=== PATIENT | female | born 1960 | race African-American/Black ===

== ENCOUNTER 2017-08-03 12:03 | Inpatient (IN) | payer BC ==
[2017-08-03] MEDS ORDERED: diphenhydrAMINE 50 MG/ML VIAL ONE (12:16)
[2017-08-03] MEDS ORDERED: Tenecteplase 50 MG - STEMI KIT ONE (12:18)
[2017-08-03 12:38] LABS: #Lymphocytes 3.5 thou/uL (1.20-3.40); #Monocytes 1.1 thou/uL (0.11-0.59); #Neutrophils 10.4 thou/uL (1.40-6.50); %Basophils 0.3 % (0.0-1.0); %Eosinophils 0.2 % (0.0-10.0); %Lymphocytes 23.3 % (21.0-51.0); %Monocytes 7.1 % (0.0-10.0); Hemoglobin 16.5 g/dL (12.0-16.0); Mean Corpuscular HGB CONC 34.2 g/dL (32.0-36.0); Mean Corpuscular Volume 84.7 fl (81.0-99.0); Mean Platelet Volume 7.4 fL (7.4-10.4); Platelet Count 306 thou/uL (130-400); RBC Distribution Width 13.8 % (11.5-14.5); Red Blood Cell (RBC) Count 5.67 mill/uL (4.20-5.40); White Blood Cell (WBC) Count 15.1 thou/uL (4.8-10.8)
[2017-08-03 12:53] LABS: ALT (SGPT) 32 U/L (8-55); AST (SGOT) 96 U/L (5-34); Albumin 4.6 g/dL (3.5-5.0); Alkaline Phosphatase 152 U/L (40-150); Anion Gap 17 mmol/L (10-20); BUN (Urea Nitrogen) 13 mg/dL (9.8-20.1); Bilirubin, Total 0.6 mg/dL (0.2-1.2); CK (CPK) 1118 U/L (29-168); Calc. Creatinine Clearance 0 mL/min (70-130); Calcium 10.3 mg/dL (7.8-10.44); Carbon Dioxide 24 mmol/L (22-29); Chloride 100 mmol/L (98-107); Estimated GFR-MDRD 64; Globulin 4.6 g/dL (2.4-3.5); Glucose 133 mg/dL (70-105); Potassium 3.7 mmol/L (3.5-5.1); Protein, Total 9.2 g/dL (6.0-8.3); Sodium 137 mmol/L (136-145)
[2017-08-03 13:06] LABS: CKMB 116.6 ng/mL (0-6.6); Troponin I 7.214 ng/mL (< 0.028)
[2017-08-03 13:21] LABS: Magnesium 1.9 mg/dL (1.6-2.6)
[2017-08-03 13:27] LABS: INR-International Normal Ratio 1.1; PTT 34.8 SEC (22.9-36.1); Prothrombin Time 13.9 SEC (12.0-14.7)
[2017-08-03] MEDS ORDERED: Heparin 10,000 UNITS/ 10 ML VIAL SLOW IVP SCH (14:00)
[2017-08-03] MEDS ORDERED: Communication Order-Pharmacy FS SCH (14:00)
[2017-08-03] MEDS ORDERED: Clopidogrel Bisulfate 300 MG TAB PO SCH (14:00)
[2017-08-03] MEDS ORDERED: Heparin 25,000 units/D5W 500 ML IVPB SCH (14:00)
[2017-08-03 14:25] LABS: Cardiac Risk 4.2 (Less than 4.5)
--- NOTE | 2017-08-03 14:31 | RAD ---
PORTABLE CHEST: Date: 08-03-17 Provided Clinical History: Chest pain. FINDINGS: Comparison 12-05-08. Evaluation is limited by patient body habitus. The cardiac silhouette appears enlarged. No focal cons olidation, pleural fluid or pneumothorax apparent. IMPRESSION: Cardiomegaly without evidence for an acute cardiopulmonary process. POS: [facility]
[2017-08-03 14:38] LABS: Hemoglobin 14.9 g/dL (12.0-16.0); Platelet Count 299 thou/uL (130-400)
[2017-08-03 14:49] LABS: PTT 125.5 SEC (22.9-36.1)
[2017-08-03] MEDS ORDERED: Ondansetron HCl/PF 4 MG/2 ML Vial IVP PRN (15:21)
[2017-08-03] MEDS ORDERED: Acetaminophen 325 MG TAB PO PRN (15:21)
[2017-08-03] MEDS ORDERED: Nitroglycerin 0.4 MG TAB (25 Tab Bottle) SL PRN (15:21)
[2017-08-03] MEDS ORDERED: Nitroglycerin 50 MG/250 ML BOT 250 ML IVPB SCH (15:30)
[2017-08-03] MEDS: Sodium Chloride 0.9% 1,000 ML IV SCH (16:36)
[2017-08-03 16:42] LABS: Troponin I 15.643 ng/mL (< 0.028)
[2017-08-03 16:51] VITALS: BMI 38.7
[2017-08-03] MEDS: Morphine 4 MG/ML VIAL SLOW IVP PRN ×2 (17:47→20:59)
[2017-08-03 18:51] LABS: Troponin I 15.958 ng/mL (< 0.028)
[2017-08-03] MEDS ORDERED: Famotidine/PF 20 mg/2ml Vial SLOW IVP SCH (21:00)
[2017-08-03] MEDS ORDERED: Atorvastatin Calcium 20 MG TAB PO SCH (21:00)
[2017-08-03] MEDS: Atorvastatin Calcium 40 MG TAB PO SCH (21:04)
[2017-08-03] MEDS: Metoprolol Tartrate 100 MG TAB PO SCH (21:04)
[2017-08-04 05:24] LABS: Band 2 % (5-11); Hemoglobin 13.6 g/dL (12.0-16.0); Lymphocytes 30 % (21-51); MDiff Complete? YES; Mean Corpuscular HGB CONC 34.1 g/dL (32.0-36.0); Mean Corpuscular Hemoglobin 29.6 pg (27.0-31.0); Mean Corpuscular Volume 86.8 fl (81.0-99.0); Mean Platelet Volume 7.5 fL (7.4-10.4); Monocytes 8 % (0-10); Neutrophil 59 % (42-75); Platelet Count 274 thou/uL (130-400); RBC Distribution Width 13.8 % (11.5-14.5); Reactive Lymphocytes 1 % (0-10); Red Blood Cell (RBC) Count 4.61 mill/uL (4.20-5.40); White Blood Cell (WBC) Count 15.5 thou/uL (4.8-10.8)
[2017-08-04] MEDS: Sodium Chloride 0.9% 1,000 ML IV SCH ×4 (05:51→18:32)
[2017-08-04 06:11] LABS: ALT (SGPT) 23 U/L (8-55); AST (SGOT) 57 U/L (5-34); Albumin 3.5 g/dL (3.5-5.0); Alkaline Phosphatase 106 U/L (40-150); Anion Gap 12 mmol/L (10-20); BUN (Urea Nitrogen) 14 mg/dL (9.8-20.1); Bilirubin, Total 0.5 mg/dL (0.2-1.2); Calc. Creatinine Clearance 83 mL/min (70-130); Calcium 8.2 mg/dL (7.8-10.44); Carbon Dioxide 22 mmol/L (22-29); Cardiac Risk 3.6 (Less than 4.5); Chloride 106 mmol/L (98-107); Cholesterol 171 mg/dl (< 200 Desired); Estimated GFR-MDRD 58; Globulin 3.3 g/dL (2.4-3.5); Glucose 144 mg/dL (70-105); HDL Cholesterol 48 mg/dL (>60 Neg Risk); LDL Cholesterol, Calculated 100 mg/dL; Potassium 3.5 mmol/L (3.5-5.1); Protein, Total 6.8 g/dL (6.0-8.3); Sodium 136 mmol/L (136-145); Triglycerides 114 mg/dL (Less than 150)
[2017-08-04] MEDS ORDERED: Famotidine 40 MG/4 ML VIAL SLOW IVP SCH (09:00)
[2017-08-04] MEDS: Clopidogrel Bisulfate 75 MG TAB PO SCH (09:45)
[2017-08-04] MEDS: Famotidine 20 MG TAB PO SCH ×2 (09:45→20:13)
[2017-08-04] MEDS: Metoprolol Tartrate 100 MG TAB PO SCH ×2 (09:45→20:13)
[2017-08-04 10:17] LABS: CKMB 35.6 ng/mL (0-6.6); Troponin I 9.518 ng/mL (< 0.028)
[2017-08-04] MEDS ORDERED: Heparin 10,000 UNITS/1 ML VIAL ONE (10:50)
[2017-08-04] MEDS ORDERED: Lidocaine 1% (PF) 30 ML VIAL ONE (11:16)
[2017-08-04] MEDS ORDERED: Fentanyl 100 MCG/2 ML VIAL ONE (11:18)
[2017-08-04] MEDS ORDERED: Midazolam HCl 2 mg/2 ml Vial ONE (11:18)
[2017-08-04] MEDS ORDERED: Bivalirudin 250 MG VIAL ONE (11:37)
[2017-08-04] MEDS ORDERED: Clopidogrel Bisulfate 300 MG TAB ONE (11:46)
[2017-08-04] MEDS ORDERED: Nitroglycerin 100MG/250ML BOT 250 ML ONE (11:54)
[2017-08-04] MEDS ORDERED: Lisinopril 10 MG TAB PO SCH (13:00)
--- NOTE | 2017-08-04 13:32 | PDOC.PN ---
- Subjective Encounter Start Date: 08/04/17 Encounter Start Time: 11:00 Subjective: is npo for cath -: chest pain has eased up mostly -: no palp or sob - Objective MAR Reviewed: Yes Vital Signs & Weight: Vital Signs (12 hours) Temp Pulse Resp Pulse Ox 08/04/17 08:00 98.5 F 80 16 100 08/04/17 04:00 97.6 F Most Recent Monitor Data Heart Rate from ECG 70 NIBP 126/73 NIBP BP-Mean 96 Respiration from ECG 12 SpO2 100 I&O: 08/03/17 08/04/17 08/05/17 06:59 06:59 06:59 Intake Total 1639 Output Total 1 400 Balance 1638 -400 Result Diagrams: 08/04/17 04:26 08/04/17 04:26 Phys Exam - Physical Examination HEENT: PERRLA, moist MMs Neck: no JVD, supple Respiratory: no wheezing, no rales Cardiovascular: RRR, no significant murmur Gastrointestinal: soft, non-tender, positive bowel sounds Musculoskeletal: no edema, pulses present Neurological: non-focal, moves all 4 limbs Psychiatric: normal affect, A&O x 3 Dx/Plan (1) STEMI (ST elevation myocardial infarction) Status: Acute Qualifiers: Involved coronary artery: LAD coronary artery Qualified Code(s): I21.02 - ST elevation (STEMI) myocardial infarction involving left anterior descending coronary artery Comment: s/p stent to lad and rca (2) HTN (hypertension) Code(s): I10 - ESSENTIAL (PRIMARY) HYPERTENSION Status: Chronic Qualifiers: Hypertension type: essential hypertension Qualified Code(s): I10 - Essential (primary) hypertension (3) Dyslipidemia Code(s): E78.5 - HYPERLIPIDEMIA, UNSPECIFIED Status: Chronic (4) Obesity (BMI 30-39.9) Code(s): E66.9 - OBESITY, UNSPECIFIED Status: Chronic - Plan is on plavix (allergic to asp) and lipitor -: lopressor, lisinopril -: iv hydration -: to amb as tolerated post cath protocol -: early dm with HbA1c of 6 * . Review of Systems - Medications/Allergies Allergies/Adverse Reactions: Allergies Allergy/AdvReac Type Severity Reaction Status Date / Time aspirin Allergy Verified 05/02/16 15:17 Penicillins Allergy Verified 05/02/16 15:17 Medications: Current Medications Acetaminophen (Tylenol) 650 mg PO Q4H PRN PRN Reason: Headache/Fever or Pain Atorvastatin Calcium (Lipitor) 40 mg PO HS [facility] Last Admin: 08/03/17 21:04 Dose: 40 mg Clopidogrel Bisulfate (Plavix) 75 mg PO DAILY [facility] Last Admin: 08/04/17 09:45 Dose: 75 mg Famotidine (Pepcid) 20 mg PO Q12HR [facility] Last Admin: 08/04/17 09:45 Dose: 20 mg Nitroglycerin/Dextrose (Nitroglycerin 50 Mg/250 Ml Bot) 250 mls @ 0 mls/hr IVPB INF YADI; Titrate PRN Reason: Protocol Sodium Chloride (Normal Saline 0.9%) 1,000 mls @ 125 mls/hr IV .Q8H [facility] Stop: 08/04/17 20:00 Lisinopril (Zestril) 10 mg PO BID [facility] Lisinopril (Zestril) 10 mg PO NOW [facility] Stop: 08/04/17 15:00 Metoprolol Tartrate (Lopressor) 100 mg PO BID [facility] Last Admin: 08/04/17 09:45 Dose: 100 mg Morphine Sulfate (Morphine) 2 mg SLOW IVP Q5MIN PRN PRN Reason: Chest Pain Last Admin: 08/03/17 20:59 Dose: 2 mg Nitroglycerin (Nitrostat) 0.4 mg SL Q5MIN PRN PRN Reason: Chest Pain Ondansetron HCl (Zofran) 4 mg IVP Q6H PRN PRN Reason: Nausea/Vomiting Last Admin: 08/03/17 21:02 Dose: 4 mg
[2017-08-04] MEDS ORDERED: Iopamidol 370 76% 100 ML VIAL ONE (14:01)
[2017-08-04] MEDS ORDERED: Iopamidol 370 76% 50 ML VIAL FS ONE (14:01)
--- NOTE | 2017-08-04 15:03 | CCL ---
CARDIAC CATHETERIZATION REPORT: Date: 08/04/17 PROCEDURE: Left heart catheterization, selective arteriography, and left ventriculography. Intracoronary nitroglycerin. Stent placement in the LAD and first diagonal. INDICATION: Anterolateral STEMI. DESCRIPTION OF PROCEDURE: The patient was brought to the cardiac stucco laborer after having received TNKase the day prior. 1% lidocaine was infiltrated. Fentanyl 25 mg and Versed 1 mg were given intravenously. A 6 Surinamese sheath was placed into the right femoral artery. A 6 Surinamese Kat left-4 followed by a 6 Surinamese Kat right-4 was used for coronary arteriography. The patient was given an additional 300 mg of Plavix PO. Angiomax bolus and drip were started. A 6 Surinamese left-4 guide catheter was inserted. A floppy Choice wire was advanced into the distal LAD. The mid LAD lesion, once it was wired, which was somewhat difficult, was predilated with Emerge 2.5 x 15 mm balloon. This was then removed and Synergy 2.5 x 16 mm stent was then positioned and deployed. Distal to this, there appeared to be either dissection or spasm and nitroglycerin 200 mcg was given with dramatic improvement. Attention was then turned to the mid LAD just distal to the diagonal takeoff and it was felt this was also a fairly significant lesion. An additional floppy Choice wire was advanced into the first diagonal. Synergy 3.0 x 12 mm stent was then positioned in the first diagonal and deployed with proximal part of the stent just at the ostium of the first diagonal. The balloon was then removed and Synergy 3.0 x 20 mm stent was then positioned across the takeoff of the first diagonal into the LAD lesion. This was then deployed. The diagonal wire was then removed. With the more distal stent, it was felt there was still a narrowing in the mid portion of the stent, and an Emerge 3.0 x 8 mm balloon was then positioned and inflated. The wire was then removed. Final contrast injections were performed, which showed excellent results. A 6 Surinamese angulated pigtail was then inserted and pressures were obtained. Left ventriculogram was performed using 30 mL of contrast at 12 mL per second in a FLOWER 30 degree projection. Cine was inoperable and this was performed on stored fluoro. The sheath was then sutured in place and patient was transferred to the ICU. RESULTS: PRESSURES: Aorta 146/92, mean of 116 Left Ventricle 150/28 CORONARY ARTERIOGRAPHY: 1. The left main was normal. 2. The LAD had a 70% mid stenosis, as well as a 90% mid stenosis. There was a 60% stenosis in the first diagonal. 3. The circumflex had a 30% first obtuse marginal stenosis. 4. The right coronary artery had a 20% proximal stenosis and a 60% distal stenosis. INTERVENTION RESULTS: The initial mid LAD lesion was 90%; final lesion was 0%. The other mid LAD lesion was reduced from 70% to 0%. The diagonal lesion was reduced from 60% to 0%. LEFT VENTRICULOGRAM: There was moderate apical hypokinesis with ejection fraction of 55-60%. IMPRESSION: 1. Two vessel coronary artery disease (LAD and RCA). 2. Successful stent placement in the proximal to mid LAD, first diagonal, and mid LAD. 3. Mild left ventricular dysfunction. MTDD
[2017-08-04] MEDS: Lisinopril 10 MG TAB PO SCH (20:12)
[2017-08-04] MEDS: Atorvastatin Calcium 40 MG TAB PO SCH (20:13)
--- NOTE | 2017-08-05 01:50 | HP ---
REASON FOR ADMISSION: Anterolateral wall STEMI, septal OR. HISTORY OF PRESENTING ILLNESS: The patient gives history of having retrosternal chest pain from 3 p.m. onwards yesterday. This happened while she was at home. The patient initially thought this was due to gas and tried taking up to 3 to 4 Tums. There was no relief. Initial pain was 8/10 in intensity. The pain started out behind her right breast, but then this pain stationed around her retrosternal and epigastric area for the most part. As the pain continued all through the night and early this morning, the patient finally made it to the emergency room here. Currently, the pain is 3/10 in intensity. She was found to have had septal and anterolateral wall OR. She was given tenecteplase 50 mg IV x1. She was also given 5 mg of lopressor IV push and was placed on heparin infusion as patient has ongoing chest pain. Currently, she rates her pain as 3 to 4/10. It is in the same location. No complaints of shortness of breath. No prior cardiac workup. No prior history of OR. No complaints of fever, cough or expectoration. 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 CURRENT MEDICATIONS: Atenolol 100 mg p.o. twice daily. ALLERGIES: Allergic to ASPIRIN, which causes her to have a rash and PENICILLIN does the same thing. PERSONAL HISTORY: She does not abuse alcohol or drugs. No history of smoking. Works at [employer]. FAMILY HISTORY: Mother of OR in her 30s. Father is still living and healthy as far as she knows. CODE STATUS: FULL. Power of title attorney is her daughter. REVIEW OF SYSTEMS: The following complete review of systems was negative, unless otherwise mentioned in the HPI or below: Constitutional: Weight loss or gain, ability to conduct usual activities. Skin: Rash, itching. Eyes: Double vision, pain. ENT/Mouth: Nose bleeding, neck stiffness, pain, tenderness. Cardiovascular: Palpitations, dyspnea on exertion, orthopnea. Respiratory: Shortness of breath, wheezing, cough, hemoptysis, fever or night sweats. Gastrointestinal: Poor appetite, abdominal pain, heartburn, nausea, vomiting, constipation, or diarrhea. Genitourinary: Urgency, frequency, dysuria, nocturia. Musculoskeletal: Pain, swelling. Neurologic/Psychiatric: Anxiety, depression. Allergy/Immunologic: Skin rash, bleeding tendency. PHYSICAL EXAMINATION: GENERAL: The patient is a 57-year-old female, who is currently in moderate chest pain. VITAL SIGNS: Blood pressure 160/84, pulse 84 per minute, respiratory rate 18 per minute, temperature 99 degrees, saturating 100% on 2 L nasal cannula. NECK: Supple. No elevated JVD. HEENT: Eyes: Extraocular muscles intact. Pupils are reacting to light. Oral cavity: Mucous membranes are dry. No exudates or congestion. CARDIOVASCULAR: S1, S2 heard. Regular rhythm. RESPIRATORY: Air entry 2+ bilateral. No rales or rhonchi. ABDOMEN: Soft. Bowel sounds heard. No tenderness, rigidity or guarding. EXTREMITIES: No peripheral edema or calf tenderness. VASCULAR: Peripheral pulses 1+ bilateral. No ischemic ulcerations or gangrene. CENTRAL NERVOUS SYSTEM: No gross focal deficits seen. The patient is alert and oriented well. PSYCHIATRIC: The patient is a bit anxious, otherwise no hallucinations or delusions. LABORATORY DATA: White count of 15, hemoglobin and hematocrit 16 and 48, platelet count 306,000 with 69% neutrophils, MCV is 84. PT, INR, and PTT are within normal limits on arrival. Electrolytes are stable. BUN 13, creatinine 1.0, serum glucose is 133, HbA1c 6.0. AST 96, ALT 32, alkaline phosphatase 152 , CK level 1118, CK-MB 116, troponin I 7.21, BNP 643. Albumin is 4.6, triglycerides 114, total cholesterol 242, LDL 162, HDL 57, and lipase is 19. IMAGING: Chest x-ray done shows cardiomegaly without any acute infiltrate. EKG done shows ST-elevation in V1, V2, V3, V4 leads, has reciprocal changes. Rhythm is in normal sinus and the rate is around 85 beats per minute. CLINICAL IMPRESSION AND PLAN: The patient will be admitted to ICU for ST- elevation myocardial infarction of anterolateral and septal wall. She was given 50 mg IV x1 dose of tenecteplase and as the pain is ongoing, she has been continued on heparin drip. Dr. Echeverria has been consulted and has advised above measures. She is also on nitroglycerin drip, Lopressor 100 mg twice daily and normal saline at 100 mL/hour. The patient is allergic to ASPIRIN and has been loaded up on Plavix 300 mg 1 dose and will continue 75 mg from tomorrow. We will place her on 20 mg of Lipitor, Pepcid 20 mg IV q.12 hourly. Morphine p.r.n. for pain. Echo with 2D Doppler stat for left ventricular function. We will continue to closely monitor her in ICU. MTDD
[2017-08-05 04:48] LABS: #Lymphocytes 3.7 thou/uL (1.20-3.40); #Monocytes 1.2 thou/uL (0.11-0.59); #Neutrophils 7.1 thou/uL (1.40-6.50); %Basophils 0.3 % (0.0-1.0); %Eosinophils 0.4 % (0.0-10.0); %Lymphocytes 30.4 % (21.0-51.0); %Monocytes 9.8 % (0.0-10.0); %Neutrophils 59.1 % (42.0-75.0); Mean Corpuscular HGB CONC 33.7 g/dL (32.0-36.0); Mean Corpuscular Volume 86.1 fl (81.0-99.0); Mean Platelet Volume 7.3 fL (7.4-10.4); Platelet Count 235 thou/uL (130-400); RBC Distribution Width 13.9 % (11.5-14.5); Red Blood Cell (RBC) Count 4.49 mill/uL (4.20-5.40)
[2017-08-05 05:08] LABS: ALT (SGPT) 16 U/L (8-55); AST (SGOT) 44 U/L (5-34); Albumin 3.3 g/dL (3.5-5.0); Alkaline Phosphatase 99 U/L (40-150); Anion Gap 11 mmol/L (10-20); BUN (Urea Nitrogen) 12 mg/dL (9.8-20.1); Bilirubin, Total 0.5 mg/dL (0.2-1.2); Calc. Creatinine Clearance 104 mL/min (70-130); Calcium 8.2 mg/dL (7.8-10.44); Carbon Dioxide 23 mmol/L (22-29); Chloride 107 mmol/L (98-107); Estimated GFR-MDRD 76; Globulin 3.3 g/dL (2.4-3.5); Glucose 103 mg/dL (70-105); Potassium 3.8 mmol/L (3.5-5.1); Protein, Total 6.6 g/dL (6.0-8.3); Sodium 137 mmol/L (136-145)
--- NOTE | 2017-08-05 07:19 | EKG ---
Test Reason : Blood Pressure : / mmHG Vent. Rate : 067 BPM Atrial Rate : 067 BPM P-R Int : 140 ms QRS Dur : 076 ms QT Int : 512 ms P-R-T Axes : 042 008 234 degrees QTc Int : 541 ms Normal sinus rhythm Prolonged QT inferior stt changes Abnormal ECG When compared with ECG of 03-AUG-2017 15:49, (Unconfirmed) Inverted T waves have replaced nonspecific T wave abnormality in Inferior leads Confirmed by DR. Tesfaye ESTRADA ([id number]) on 08/05/2017 7:18:56 AM Referred By: LOREE Confirmed By:DR. Tesfaye ESTRADA
--- NOTE | 2017-08-05 07:27 | EKG ---
Test Reason : POST STENTS 3LAD/1C Blood Pressure : / mmHG Vent. Rate : 077 BPM Atrial Rate : 077 BPM P-R Int : 152 ms QRS Dur : 072 ms QT Int : 448 ms P-R-T Axes : 066 014 -67 degrees QTc Int : 506 ms Age and gender specific ECG analysis Normal sinus rhythm Changes of acute tamiko-lateral IN Prolonged QT * ACUTE IN * Abnormal ECG When compared with ECG of 04-AUG-2017 10:43, (Unconfirmed) No significant change was found Confirmed by DR. Tesfaye ESTRADA ([id number]) on 08/05/2017 7:27:11 AM Referred By: LOREE Confirmed By:DR. Tesfaye ESTRADA
--- NOTE | 2017-08-05 08:36 | CON ---
DATE OF CONSULTATION: 08/03/2017 HISTORY: Mary Peralta is a 57-year-old, black female, who denies any previous cardiac problems. She denies any previous episodes of chest discomfort. Yesterday at approximately 3 p.m. had onset of substernal chest pressure associated with nausea and vomiting, but no diaphoresis or shortness of breath. She states that the pain has continued since that time almost 24 hours ago until he present. She had an abnormal EKG on presentation and this being the weekend, I was doing an acute STEMI in the microbiology lab manager and told the ER physician that she should receive lytic therapy, since I could not respond his STEMI call. PAST MEDICAL HISTORY: Hypertension. She denies any history of diabetes or hypercholesterolemia. MEDICATIONS: Unknown at this time. ALLERGIES: Include PENICILLIN. She also states she is allergic to ASPIRIN and that she will develop pruritis. She received aspirin earlier today, has been given Benadryl. OPERATIONS: Neck surgery. SOCIAL HISTORY: She does not smoke or drink. FAMILY HISTORY: Mother had a myocardial infarction and in her 30s. REVIEW OF SYSTEMS: A 12-point review of systems otherwise unremarkable. PHYSICAL EXAMINATION: VITAL SIGNS: 170/92, pulse of 80. HEENT: PERRL. NECK: Supple. CHEST: Clear. CARDIAC: S1, S2 normal without any S3 or S4 or murmurs. Carotid upstrokes normal without bruits. ABDOMEN: Normal bowel sounds without tenderness, organomegaly. EXTREMITIES: Revealed no clubbing, cyanosis, or edema. NEUROLOGIC: Grossly intact. SKIN: Warm and dry. LABORATORY DATA: EKG reveals sinus tachycardia with [address]-elevation in V2 through V4. Old EKG showed that she has had previous septal infarct. Initial EKG also shows [address]-segment elevation in V6. After lytic therapy EKG is improved in that V6 has no further ST elevation in the ST-segment elevations come down the baseline. Hemoglobin 16.5, hematocrit 48.1, white count 15,100, INR 1.1. Sodium 137, potassium 3.7, chloride 100, carbon dioxide 24, BUN 13, creatinine 1.07, creatine kinase 1,218, CK-MB 116.6, troponin I 7.241. IMPRESSION: 1. Anterolateral myocardial infarction with onset of pain almost 24 hours prior to my initial evaluation. She has already received lytic therapy and has had some improvement in her EKG. She continues to have chest discomfort that is somewhat pleuritic in nature. 2. Probable true aspirin allergy. 3. Hypertension. 4. Obesity. PLAN: Situation was discussed with the patient and her family. It sounds as if the onset of her myocardial infarction was yesterday with significantly positive cardiac enzymes. She has been placed on lytic therapy followed by heparin. She will be given Plavix 300 mg p.o. and then 75 per day. Said she has an aspirin allergy. It is recommended she undergo cardiac catheterization. Risks of catheterization were discussed with the patient including , myocardial infarction, CVA, transfusion, limb loss, renal loss, vascular injury , allergic reaction etc. Also risks of stent placement were discussed including , myocardial infarction, emergent CABG, restenosis, stent thrombosis, vessel perforation, etc. It sounds as if she will require long- term Plavix therapy with having any aspirin allergy if stent is needed, drug- coated stent will be replaced. She is on high-dose atenolol-100 mg b.i.d. She will be placed on metoprolol. [facility]
[2017-08-05] MEDS: Clopidogrel Bisulfate 75 MG TAB PO SCH (09:05)
[2017-08-05] MEDS: Famotidine 20 MG TAB PO SCH ×2 (09:05→20:08)
[2017-08-05] MEDS: Lisinopril 10 MG TAB PO SCH ×2 (09:05→20:08)
[2017-08-05] MEDS: Metoprolol Tartrate 100 MG TAB PO SCH ×2 (09:05→20:08)
--- NOTE | 2017-08-05 09:17 | PDOC.PN ---
- Subjective Encounter Start Date: 08/05/17 Encounter Start Time: 09:16 Ms. Peralta was seen today in follow-up. She says she feels a little dizzy, but otherwise ok. She denies any chest pain or shortness of breath. - Objective MAR Reviewed: Yes Vital Signs & Weight: Vital Signs (12 hours) Temp Pulse Resp BP Pulse Ox 08/05/17 09:05 120/74 08/05/17 08:00 98.1 F 76 17 100 08/05/17 07:36 98 08/05/17 07:00 98.1 F 08/05/17 04:00 98.2 F 08/05/17 00:00 98.7 F Most Recent Monitor Data Heart Rate from ECG 76 NIBP 120/74 NIBP BP-Mean 96 Respiration from ECG 21 SpO2 100 I&O: 08/04/17 08/05/17 08/06/17 06:59 06:59 06:59 Intake Total 1639 2862.2 Output Total 1 2220 500 Balance 1638 642.2 -500 Result Diagrams: 08/05/17 04:21 08/05/17 04:21 Phys Exam - Physical Examination HEENT: PERRLA, sclera anicteric Respiratory: no wheezing, no rales, no rhonchi, clear to auscultation bilateral Cardiovascular: RRR, no significant murmur, no rub Gastrointestinal: soft, non-tender, no distention, positive bowel sounds Musculoskeletal: no edema, pulses present Dx/Plan (1) STEMI (ST elevation myocardial infarction) Status: Acute Qualifiers: Involved coronary artery: LAD coronary artery Qualified Code(s): I21.02 - ST elevation (STEMI) myocardial infarction involving left anterior descending coronary artery Comment: s/p stent to lad and rca (2) Dyslipidemia Code(s): E78.5 - HYPERLIPIDEMIA, UNSPECIFIED Status: Chronic (3) HTN (hypertension) Code(s): I10 - ESSENTIAL (PRIMARY) HYPERTENSION Status: Chronic Qualifiers: Hypertension type: essential hypertension Qualified Code(s): I10 - Essential (primary) hypertension (4) Obesity (BMI 30-39.9) Code(s): E66.9 - OBESITY, UNSPECIFIED Status: Chronic - Plan * Acut STEMI- she is s/p 3 STENT, 2 to the LAD, and one to the Diagonal. Continue Plavix- she is allergic to aspirin * Continue Metoprolol, and Lipitor * HTN- blood pressure is stable * She is stable for transfer out of the ICU.
[2017-08-05 14:41] LABS: Hemoglobin 13.3 g/dL (12.0-16.0); Platelet Count 229 thou/uL (130-400)
--- NOTE | 2017-08-05 16:27 | EKG ---
Test Reason : Blood Pressure : / mmHG Vent. Rate : 079 BPM Atrial Rate : 079 BPM P-R Int : 156 ms QRS Dur : 082 ms QT Int : 450 ms P-R-T Axes : 050 014 236 degrees QTc Int : 516 ms Normal sinus rhythm Prolonged QT Abnormal ECG When compared with ECG of 04-AUG-2017 14:20, T wave inversion less evident in Inferior leads Confirmed by DR. Tesfaye ESTRADA ([id number]) on 08/05/2017 4:26:52 PM Referred By: LOREE Confirmed By:DR. Tesfaye ESTRADA
[2017-08-05] MEDS: Atorvastatin Calcium 40 MG TAB PO SCH (20:08)
[2017-08-06] MEDS: Lisinopril 10 MG TAB PO SCH ×2 (08:43→21:03)
[2017-08-06] MEDS: Clopidogrel Bisulfate 75 MG TAB PO SCH (08:43)
[2017-08-06] MEDS: Famotidine 20 MG TAB PO SCH ×2 (08:43→21:03)
[2017-08-06] MEDS: Metoprolol Tartrate 100 MG TAB PO SCH ×2 (08:43→21:03)
--- NOTE | 2017-08-06 10:11 | PDOC.PN ---
- Subjective Encounter Start Date: 08/06/17 Encounter Start Time: 10:08 Ms. Peralta was seen today in follow-up. She says she feels a bit dizzy when standing up, otherwise ok. - Objective MAR Reviewed: Yes Vital Signs & Weight: Vital Signs (12 hours) Temp Pulse Resp BP Pulse Ox 08/06/17 08:40 98.2 F 78 16 157/87 H 98 08/06/17 04:00 98.5 F 76 18 138/78 95 08/06/17 00:00 98.4 F 79 18 128/73 97 Weight Weight 220 lb 11.2 oz Most Recent Monitor Data Heart Rate from ECG 71 NIBP 123/78 NIBP BP-Mean 92 Respiration from ECG 20 SpO2 100 I&O: 08/05/17 08/06/17 08/07/17 06:59 06:59 06:59 Intake Total 2862.2 860 Output Total 2220 1450 Balance 642.2 -590 Result Diagrams: 08/05/17 14:25 08/05/17 04:21 Phys Exam - Physical Examination HEENT: PERRLA Respiratory: no wheezing, no rales, no rhonchi, clear to auscultation bilateral Cardiovascular: RRR, no significant murmur, no rub Gastrointestinal: soft, non-tender, no distention, positive bowel sounds Musculoskeletal: no edema Dx/Plan (1) STEMI (ST elevation myocardial infarction) Status: Acute Qualifiers: Involved coronary artery: LAD coronary artery Qualified Code(s): I21.02 - ST elevation (STEMI) myocardial infarction involving left anterior descending coronary artery Comment: s/p stent to lad and rca (2) Dyslipidemia Code(s): E78.5 - HYPERLIPIDEMIA, UNSPECIFIED Status: Chronic (3) HTN (hypertension) Code(s): I10 - ESSENTIAL (PRIMARY) HYPERTENSION Status: Chronic Qualifiers: Hypertension type: essential hypertension Qualified Code(s): I10 - Essential (primary) hypertension (4) Obesity (BMI 30-39.9) Code(s): E66.9 - OBESITY, UNSPECIFIED Status: Chronic - Plan * STEMI- clinically stable, no evidence of any arrhythmias * HTN- blood pressure is stable. * Possible discharge today.
[2017-08-06] MEDS: Atorvastatin Calcium 40 MG TAB PO SCH (21:03)
[2017-08-07] MEDS: Famotidine 20 MG TAB PO SCH (08:38)
[2017-08-07] MEDS: Clopidogrel Bisulfate 75 MG TAB PO SCH (08:38)
[2017-08-07] MEDS: Metoprolol Tartrate 100 MG TAB PO SCH (08:39)
[2017-08-07] MEDS: Lisinopril 10 MG TAB PO SCH (08:39)
--- NOTE | 2017-08-07 10:05 | PDOC.PN ---
- Subjective Encounter Start Date: 08/07/17 Encounter Start Time: 10:03 Ms. Peralta was seen today in follow-up. She does not have any new complaints this morning. - Objective MAR Reviewed: Yes Vital Signs & Weight: Vital Signs (12 hours) Temp Pulse Resp BP BP Pulse Ox 08/07/17 08:35 98.3 F 75 16 175/95 H 97 08/07/17 04:19 97.9 F 72 18 143/78 H 96 Weight Weight 220 lb 11.2 oz Most Recent Monitor Data Heart Rate from ECG 71 NIBP 123/78 NIBP BP-Mean 92 Respiration from ECG 20 SpO2 100 I&O: 08/06/17 08/07/17 08/08/17 06:59 06:59 06:59 Intake Total 860 Output Total 1450 Balance -590 Result Diagrams: 08/05/17 14:25 08/05/17 04:21 Phys Exam - Physical Examination HEENT: PERRLA Respiratory: no wheezing, no rales, no rhonchi, clear to auscultation bilateral Cardiovascular: RRR, no significant murmur, no rub Gastrointestinal: soft, non-tender, no distention, positive bowel sounds Musculoskeletal: no edema Dx/Plan (1) STEMI (ST elevation myocardial infarction) Status: Acute Qualifiers: Involved coronary artery: LAD coronary artery Qualified Code(s): I21.02 - ST elevation (STEMI) myocardial infarction involving left anterior descending coronary artery Comment: s/p stent to lad and rca (2) Dyslipidemia Code(s): E78.5 - HYPERLIPIDEMIA, UNSPECIFIED Status: Chronic (3) HTN (hypertension) Code(s): I10 - ESSENTIAL (PRIMARY) HYPERTENSION Status: Chronic Qualifiers: Hypertension type: essential hypertension Qualified Code(s): I10 - Essential (primary) hypertension (4) Obesity (BMI 30-39.9) Code(s): E66.9 - OBESITY, UNSPECIFIED Status: Chronic - Plan * STENT- s/p STENT- she is clinically stable and has been cleared for discharge.
--- NOTE | 2017-08-07 10:56 | DIS ---
PRIMARY CARE PHYSICIAN: No primary care physician. DATE OF ADMISSION: 08/03/2017 DATE OF DISCHARGE: 08/07/2017 DISCHARGE DISPOSITION: Home. PRIMARY DISCHARGE DIAGNOSES: 1. ST segment elevated myocardial infarction of the anterior lateral and septal wall. 2. Hypertension. 3. Dyslipidemia. 4. Morbid obesity. DISCHARGE MEDICATIONS: Plavix 75 mg daily, metoprolol 100 mg twice a day, lisinopril 10 mg twice a d ay and Lipitor 40 mg at bedtime. PROCEDURES DONE DURING ADMISSION: The patient had an emergent cardiac catheterization in which there was 2-vessel coronary artery disease found and she had a successful PCI and drug-eluting stent to th e mid LAD as well as to the proximal-mid LAD and a stent to the first diagonal. The patient also had an echocardiogram and the ejection fraction was estimated at 55-60%. There was a akinetic motion of the apical wall of the left ventricle. CODE STATUS: Full code. ALLERGIES: ASPIRIN and PENICILLIN. HOSPITAL COURSE: Ms. Peralta is a pleasant 57-year-old female who came to the emergency room compla ining of retrosternal chest pain starting behind the right breast. She was evaluated in the ER and w as found to have an ST segment elevated NV. Her troponins peaked at a level of 15.9. She was taken emergently to the labor relations teacher by Dr. Echeverria. She underwent PCI and the placement of 3 drug-eluting st ents. She had an uneventful hospital course and was subsequently discharged home to have close follo wup in the outpatient setting. She will need to establish a primary care physician and to follow up with Dr. Echeverria as recommended.
[2017-08-07 11:02] VITALS: TEMP 98.1
[2017-08-07 11:38] VITALS: BP 184/96
== END 2017-08-07 11:33 | disposition home or self-care (01) | DRG 247 ==
LOC: ERS 12:03 → CCU 16:23 → 2NO 08-05 22:13
PROVIDERS: ADMIT Internal Medicine; ATTEND Internal Medicine
PROC: 027136Z Dilation of Coronary Artery, Two Arteries with Three Drug-eluting Intraluminal Devices, Percutaneous Approach (ICD-10-PCS; principal; 2017-08-04)
PROC: 4A023N7 Measurement of Cardiac Sampling and Pressure, Left Heart, Percutaneous Approach (ICD-10-PCS; 2017-08-04)
PROC: B2111ZZ Fluoroscopy of Multiple Coronary Arteries using Low Osmolar Contrast (ICD-10-PCS; 2017-08-04)
PROC: B2151ZZ Fluoroscopy of Left Heart using Low Osmolar Contrast (ICD-10-PCS; 2017-08-04)
DX: I21.09 ST elevation (STEMI) myocardial infarction involving other coronary artery of anterior wall (principal); I10 Essential (primary) hypertension; Z79.899 Other long term (current) drug therapy; Z88.6 Allergy status to analgesic agent; Z88.0 Allergy status to penicillin; E66.01 Morbid (severe) obesity due to excess calories; E78.5 Hyperlipidemia, unspecified; Z68.38 Body mass index [BMI] 38.0-38.9, adult
CPT/HCPCS: 36415; 71045; 80053; 80061; 82553; 83036; 83690; 83735; 83880; 84484; 85014; 85018; 85025; 85049; 85347; 85610; 85730; 92928; 93005; 93010; 93306; 93458; 93798; 94760; 96365; 96366; 96375; 96376; C1725; C1769; C1874; C1887; C9600; J0583; J1200; J1644; J2001; J2250; J2270; J2405; J3010; J3101

== ENCOUNTER 2017-10-04 01:11 | Inpatient (IN) | payer BC ==
[2017-10-04 02:05] LABS: #Basophils 0.1 thou/uL (0.0-0.2); #Eosinphils 0.1 thou/uL (0.0-0.7); #Lymphocytes 3.3 thou/uL (1.20-3.40); #Monocytes 0.8 thou/uL (0.11-0.59); #Neutrophils 4.9 thou/uL (1.40-6.50); %Basophils 0.9 % (0.0-1.0); %Eosinophils 1.1 % (0.0-10.0); %Lymphocytes 36.2 % (21.0-51.0); %Monocytes 8.4 % (0.0-10.0); %Neutrophils 53.4 % (42.0-75.0); Hemoglobin 15.2 g/dL (12.0-16.0); Mean Corpuscular HGB CONC 33.9 g/dL (32.0-36.0); Mean Corpuscular Hemoglobin 29.1 pg (27.0-31.0); Mean Corpuscular Volume 85.7 fL (78.0-98.0); Mean Platelet Volume 7.1 fL (7.4-10.4); Platelet Count 245 thou/uL (130-400); RBC Distribution Width 14.2 % (11.5-14.5); Red Blood Cell (RBC) Count 5.24 mill/uL (4.20-5.40); White Blood Cell (WBC) Count 9.1 thou/uL (4.8-10.8)
[2017-10-04] MEDS ORDERED: Promethazine HCl 25 MG/ML VIAL ONE (02:17)
[2017-10-04 02:21] LABS: ALT (SGPT) 20 U/L (8-55); AST (SGOT) 30 U/L (5-34); Albumin 4.3 g/dL (3.5-5.0); Alkaline Phosphatase 145 U/L (40-150); Anion Gap 13 mmol/L (10-20); BUN (Urea Nitrogen) 17 mg/dL (9.8-20.1); Bilirubin, Total 0.3 mg/dL (0.2-1.2); CK (CPK) 88 U/L (29-168); Calc. Creatinine Clearance 0 mL/min (70-130); Calcium 9.8 mg/dL (7.8-10.44); Carbon Dioxide 26 mmol/L (22-29); Chloride 104 mmol/L (98-107); Estimated GFR-MDRD 64; Globulin 4.3 g/dL (2.4-3.5); Glucose 142 mg/dL (70-105); Potassium 4.4 mmol/L (3.5-5.1); Protein, Total 8.6 g/dL (6.0-8.3); Sodium 139 mmol/L (136-145)
[2017-10-04 02:26] LABS: CKMB 1.4 ng/mL (0-6.6); Troponin I 0.022 ng/mL (< 0.028)
[2017-10-04] MEDS ORDERED: Nitroglycerin 2% Ointment 1 INCH/1 GM Packet ONE (02:43)
[2017-10-04] MEDS ORDERED: Nitroglycerin 0.4 MG TAB (25 Tab Bottle) ONE (02:43)
[2017-10-04] MEDS ORDERED: hydrALAZINE 20 MG/ML VIAL ONE (02:59)
[2017-10-04] MEDS ORDERED: Enoxaparin Sodium 100 MG/ML SYRINGE ONE (03:11)
[2017-10-04 04:40] VITALS: BMI 40.6
[2017-10-04 05:13] LABS: Troponin I 0.168 ng/mL (< 0.028)
[2017-10-04] MEDS ORDERED: Ondansetron ODT 4 MG TAB SL PRN (05:14)
[2017-10-04] MEDS ORDERED: Acetaminophen 325 MG TAB PO PRN (05:14)
[2017-10-04] MEDS ORDERED: Ondansetron HCl/PF 4 MG/2 ML Vial IVP PRN ×2 (05:14→07:57)
[2017-10-04] MEDS ORDERED: hydrALAZINE 20 MG/ML VIAL SLOW IVP PRN ×2 (05:16→07:57)
[2017-10-04] MEDS ORDERED: traMADol HCl 50 MG TAB PO PRN (07:57)
[2017-10-04] MEDS ORDERED: Diabetic Tussin 200 MG/10 ML UDCUP PO PRN (07:57)
[2017-10-04] MEDS ORDERED: Loratadine 10 MG TAB PO PRN (07:57)
[2017-10-04] MEDS ORDERED: Bisacodyl 5 MG TAB PO PRN (07:57)
[2017-10-04] MEDS ORDERED: HYDROcodone/Acetaminophen 5/325 mg Tablet PO PRN (07:57)
[2017-10-04] MEDS ORDERED: Senokot 8.6 MG TAB PO PRN (07:57)
[2017-10-04] MEDS ORDERED: Calcium Carbonate 500 MG ChewTAB PO PRN (07:57)
[2017-10-04] MEDS ORDERED: cloNIDine 0.1 MG TAB PO PRN (07:57)
[2017-10-04] MEDS ORDERED: Benzonatate 100 MG CAP PO PRN (07:57)
[2017-10-04] MEDS ORDERED: Lorazepam 1 MG TAB PO PRN (07:57)
[2017-10-04] MEDS ORDERED: Nitroglycerin 0.4 MG TAB (25 Tab Bottle) SL PRN (07:57)
[2017-10-04] MEDS ORDERED: Mag-Al 1200 mg/1200 mg/30 ML UDCUP PO PRN (07:57)
[2017-10-04 08:03] LABS: Troponin I 1.543 ng/mL (< 0.028)
--- NOTE | 2017-10-04 08:39 | RAD ---
PA CHEST: Date: 10/04/17 INDICATION: Chest pain. IMPRESSION: Lungs show no evidence of infiltrate. The heart is mildly enlarged and there is mild vascular engorge ment. No significant effusion noted. POS: [facility]
[2017-10-04] MEDS: Acetaminophen 325 MG TAB PO PRN ×2 (10:04→16:57)
[2017-10-04] MEDS: Losartan 25 MG TAB PO SCH (10:25)
[2017-10-04] MEDS: Amlodipine 10 MG TAB PO SCH (10:25)
[2017-10-04] MEDS: Famotidine 20 MG TAB PO SCH ×2 (10:25→21:08)
[2017-10-04] MEDS: Metoprolol Tartrate 100 MG TAB PO SCH ×2 (10:26→21:08)
[2017-10-04] MEDS: Loratadine 10 MG TAB PO SCH (10:26)
[2017-10-04 11:24] LABS: Troponin I 4.943 ng/mL (< 0.028)
--- NOTE | 2017-10-04 11:34 | HP ---
DATE OF ADMISSION: 10/04/2017 PRIMARY CARE PHYSICIAN: Not established CHIEF COMPLAINT: Chest pain. HISTORY OF PRESENT ILLNESS: Ms. Peralta is a very pleasant 57-year-old female, who was recently adm itted to our facility on 08/05/2017 and was discharged on 08/07/17 after undergoing treatment for an ST-elevation UT. She at that time was successfully PCI with drug-eluting stent in the mid LAD as wel l as proximal LAD. Her EF on echo at that time was 55% to 60%. She was discharged on appropriate ca rdio-prudent medication including Plavix, metoprolol, lisinopril, and Lipitor. She has known allergy listed to ASPIRIN. The patient reports compliance to her medication. She has been doing well up until last evening. Danie sanchez started to have significant amount of chest pain, a 7/10 pain, starting in the center and going to under her left breast. She states that it feels similar to the chest pain she had in July when she had her ST-elevation UT. Other than that, she has no recent illnesses. She denies any fever, chills , cough. This chest pain was associated with mild shortness of breath. She denies any nausea, vomit ing, diarrhea, abdominal pain. She denies any orthopnea, PND, or edema. Upon presentation to the emergency room, her blood pressure was elevated to 193/128. Otherwise, she was hemodynamically stable. Her initial cardiac enzymes were unremarkable x1. Her 12-lead EKG did n ot have any evidence of ACS. Chest x-ray was also unremarkable. She was given 1 mg/kg Lovenox thera peutic doses and is now being admitted for further evaluation and care for uncontrolled hypertension and chest pain a few weeks post-cardiac catheterization and stenting. At the time of my evaluation, the patient's chest pain has somewhat improved, but she is still very u ncomfortable. She describes the chest pain has moved from the center of the chest to the left side. She rates it as a 4/10. Since then, her repeat cardiac enzymes have trended upwards as well. Her s econd troponin was 0.168, and most recently her third cardiac enzyme, troponin is 1.543. PAST MEDICAL HISTORY: 1. Hypertension. 2. Dyslipidemia. 3. Coronary artery disease, status post stenting, 08/03/2017. 4. Recent ST-elevation myocardial infarction. 5. Morbid obesity. PAST SURGICAL HISTORY: 1. Hysterectomy. 2. C-spine surgery for pinched nerve. 3. Left ankle surgery. ALLERGIES: ASPIRIN AND PENICILLIN. SOCIAL HISTORY: No history of drug, tobacco, or alcohol abuse. Works at [employer]. FAMILY HISTORY: Mother of UT in her 30s. Father is still living and healthy. CODE STATUS: FULL CODE, discussed with the patient. MEDICATIONS: As follows, Plavix 75 mg daily, Lopressor 100 mg p.o. b.i.d., cetirizine as needed, aml odipine 10 mg daily, Cozaar 50 mg daily, atorvastatin 40 mg daily. REVIEW OF SYSTEMS: The following complete review of systems was negative, unless otherwise mentioned in the HPI or below: Constitutional: Weight loss or gain, ability to conduct usual activities. Sk in: Rash, itching. Eyes: Double vision, pain. ENT/Mouth: Nose bleeding, neck stiffness, pain, te nderness. Cardiovascular: Palpitations, dyspnea on exertion, orthopnea. Respiratory: Shortness of breath, wheezing, cough, hemoptysis, fever, or night sweats. Gastrointestinal: Poor appetite, abdo blanca pain, heartburn, nausea, vomiting, constipation, or diarrhea. Genitourinary: Urgency, frequen cy, dysuria, nocturia. Musculoskeletal: Pain, swelling. Neurologic/Psychiatric: Anxiety, depressi on. Allergy/Immunologic: Skin rash, bleeding tendency. It is negative except for those mentioned i n the history and physical. LABORATORY EXAMINATION: CBC is unremarkable. Serum chemistries show blood sugar of 142. CK-MB norm al. Troponin 0.022, then 0.168, and then 1.543. Chest x-ray, by my review, has no evidence to sugge st pleural effusion, edema, or infiltrate. A 12-lead EKG shows normal sinus rhythm without any acute ST- or T-wave changes. PHYSICAL EXAMINATION: MOST RECENT VITAL SIGNS: Temperature 98.3, pulse of 87, respirations of 18, saturating 99% on room a ir, blood pressure 137/92. GENERAL: No acute distress, though she appears uncomfortable with ongoing discomfort in her chest. She is awake, alert, oriented x3. HEENT EXAMINATION: Mucous membrane is moist and pink. No oropharyngeal exudate or erythema. Head i s normocephalic, atraumatic. Pupils are equal and reactive to light and accommodation. Extraocular movement intact. CHEST: Clear to auscultation without any wheezing, rales, or rhonchi. CARDIOVASCULAR: Regular rate and rhythm is regular without any murmur, rubs, or gallop. She is nont vikram to palpation in the anterior left chest. ABDOMEN: Soft, nontender, nondistended. No rigidity, guarding, or rebound. EXTREMITIES: Free of any cyanosis, clubbing, or edema. No calf tenderness. SKIN: Free of any rashes or bruises. Feel warm and dry to touch. NEUROLOGICAL EXAMINATION: Nonfocal. PSYCHIATRIC: Normal affect. IMPRESSION AND PLAN: 1. Chest pain, suspect unstable angina. The patient has upward trending cardiac enzymes with a rece nt history of cardiac stenting for ST-elevation myocardial infarction. Her symptoms are suggestive o f unstable angina either with some residual persistent disease or stent dysfunction. At this time, lynn sanchez will continue her b.i.d. dosing of therapeutic Lovenox and request consultation with Cardiology. S he will get a repeat echocardiogram at this time to assess any reduction in cardiac function. She ma y or may not need repeat cardiac catheterization to assess the stents. At this time, continue with h er beta deb and ARB and Lipitor. Plavix will be on hold secondary to the patient being on Loveno x and the possible need for repeat cardiac catheterization. Sublingual nitroglycerin will be continu ed. We will stop the nitro paste, if the blood pressure drops too low. She is in telemetry unit and we will repeat cardiac enzymes in few hours as well. Further management will depend upon her echoca rdiogram and recommendations from Cardiology team. 2. Pxe-[id number] myocardial infarction. The patient's cardiac enzymes are trending upwards. She will be fully anticoagulated with 1 mg/kg b.i.d. dose of Lovenox, and we will resume her beta blocke r and ARB and statin for now. Rest as #1. 3. Coronary artery disease with recent myocardial infarction and stenting. Resume medications as ab ove with the exception of Plavix for now. 4. Dyslipidemia. Resume statin. 5. Uncontrolled hypertension. Her blood pressure is under much better control for now. We will res ume amlodipine and Cozaar and Lopressor. 6. Code status: FULL CODE. 7. Morbid obesity. 8. Deep venous thrombosis and gastrointestinal prophylaxis. FINAL DISPOSITION: Ms. Peralta is going to be admitted to the hospital for chest pain, likely unsta ble angina. Further management will depend upon her clinical course.
--- NOTE | 2017-10-04 13:06 | EKG ---
Test Reason : Blood Pressure : / mmHG Vent. Rate : 080 BPM Atrial Rate : 080 BPM P-R Int : 156 ms QRS Dur : 076 ms QT Int : 374 ms P-R-T Axes : 045 -05 001 degrees QTc Int : 431 ms Normal sinus rhythm Possible Left atrial enlargement Left ventricular hypertrophy Nonspecific T wave abnormality Abnormal ECG Confirmed by SIMONE KUO MD ([id number]), staff editor FLORENCE MERCADO ([id number]) on 10/04/2017 1:02:55 PM Also confirmed by SIMONE KUO MD ([id number]), staff editor FLORENCE MERCADO ([id number]) on 10/04/2017 1:06:19 PM Referred By: Confirmed By:SIMONE KUO MD
[2017-10-04 14:30] LABS: Hemoglobin 14.2 g/dL (12.0-16.0); Platelet Count 241 thou/uL (130-400)
[2017-10-04] MEDS ORDERED: Atorvastatin Calcium 40 MG TAB PO SCH (21:00)
[2017-10-04] MEDS: Enoxaparin Sodium 100 MG/ML SYRINGE SC SCH (21:09)
[2017-10-04] MEDS ORDERED: Clopidogrel Bisulfate 300 MG TAB PO SCH (21:30)
[2017-10-04] MEDS ORDERED: Clopidogrel Bisulfate 75 MG TAB ONE (22:03)
--- NOTE | 2017-10-05 01:34 | CON ---
DATE OF CONSULTATION: 10/04/2017 HISTORY OF PRESENT ILLNESS: Mary Peralta is a 57-year-old black female that I evaluated on 08/03/2017. She denied any previous episodes of chest discomfort. The day prior to admission at 3:00 p.m., she had onset of substernal chest pressure associated with nausea and vomiting, but no diaphoresis or shortness of breath. Pain continued until she presented to the emergency room almost 24 hours after onset. EKG revealed 1-[address] segment elevation V2 through V4. A STEMI alert was called; however, at that time, I was performing intervention on another STEMI and told the emergency room I could not respond and she was given lytic therapy. After that, her ST segment elevation came down to baseline. On presentation, her CK was 1218. CK-MB 116.6, troponin I of 7.241. It was felt that she had an anterolateral myocardial infarction with onset of pain almost 24 hours prior to initial evaluation and with lytic therapy, she had improvement in her EKG. She continued to have some chest discomfort that was pleuritic in nature. The following day, she underwent cardiac catheterization. There was a 70% mid LAD stenosis as well as a 90% mid stenosis. There was a 60 % stenosis in the first diagonal. Circumflex had a 30% first obtuse marginal stenosis and the right coronary artery had a 20% proximal stenosis and a 60% distal stenosis. Due to the tortuosity in the mid LAD, there was difficulty in wiring the 90% lesion. Ultimately this was wired and dilated with a 2.5-mm balloon. Synergy 2.5 x 16 mm stent was then positioned and deployed. Attention was then turned to the mid LAD just distal to the diagonal takeoff. It was felt this also with significant lesion. Another wire was placed into the first diagonal. Synergy 3.0 x 12 mm stent was positioned in the first diagonal and deployed with proximal portion of the stent just at the ostium of the first diagonal. The stent delivery balloon was removed and another Synergy 3.0 x 20 mm stent was positioned across the takeoff the first diagonal and was then deployed. The mid portion of the stent was postdilated with 3 mm balloon. Left ventriculogram was then performed, which revealed apical hypokinesis with ejection fraction of 55%-60%. Due to ASPIRIN allergy, she was only treated with Plavix. Her LDL was 162 and she was placed on statin medication. Her troponin I increased to 15.958 and MB was 116.6 at the time of presentation and fell rapidly thereafter. She did well and stated she did not have any further chest discomfort until last night. After coming home from [facility], she had sudden onset of substernal chest pressure which was pleuritic in nature associated with nausea and vomiting. She came to the emergency room and was given sublingual nitroglycerin with improvement in her symptoms. Her blood pressure upon presentation was 193/128. Initial cardiac enzymes were unremarkable. She was given Lovenox 1 mg/kg. She has had a slight increase in her cardiac enzymes. At the present time, however, she is pain free. PAST MEDICAL HISTORY: Hypertension, hypercholesterolemia, coronary artery disease, morbid obesity. MEDICATIONS: Amlodipine 10 mg daily, atorvastatin 40 at bedtime, Zyrtec 10 mg daily, Plavix 75 daily, losartan 50 daily, metoprolol 100 b.i.d. ALLERGIES: PENICILLIN with ASPIRIN, she develops pruritus. OPERATIONS: Neck surgery. SOCIAL HISTORY: She does not smoke or drink. FAMILY HISTORY: Mother of myocardial infarction in her 30s. REVIEW OF SYSTEMS: Twelve-point review of systems, otherwise unremarkable. PHYSICAL EXAMINATION: VITAL SIGNS: 122/79, pulse 71. HEENT: PERRL. NECK: Supple. LUNGS: Chest is clear. CARDIAC: S1, S2 were distant without any rubs or murmurs. ABDOMEN: Obese. Normal bowel sounds, no tenderness. EXTREMITIES: Revealed no clubbing, cyanosis, or edema. NEUROLOGIC: Grossly intact. SKIN: Warm and dry. LABORATORY DATA: EKG revealed normal sinus rhythm with left ventricular hypertrophy, nonspecific ST segment changes. CBC is unremarkable. Sodium 139, potassium 4.4, chloride 104, carbon dioxide 26, BUN 17, creatinine 1.06, glucose 142. CK-MB was normal. Troponin I is up to 4.943. IMPRESSION: 1. Hfy-NE-cdoasrd elevation myocardial infarction. Somewhat of an unusual time course two months after her anterolateral ST-segment elevation myocardial infarction. 2. 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 She then underwent placement of drug-eluting stents in the mid LAD and another one in the proximal and mid LAD as well as a diagonal stent. She has been pain free until yesterday. 3. Hypertension. 4. Hypercholesterolemia. 5. Obesity. PLAN: Patient currently is on Lovenox and Plavix will be continued. Blood pressure is currently under good control. It was recommended that she undergo repeat catheterization. Risks of this were discussed including , myocardial infarction, dye reaction, vascular injury, CVA, transfusion, limb loss, renal loss, etc. Risk of intervention with stent placement were discussed including , myocardial infarction, emergent CABG, restenosis, stent thrombosis, vessel perforation, etc. She currently is on Plavix and if needed a drug-coated stent would be placed. She does not have EKG changes consistent with acute stent thrombosis, although from the time course this is somewhat early for restenosis. JOE
[2017-10-05 06:13] LABS: Anion Gap 11 mmol/L (10-20); BUN (Urea Nitrogen) 17 mg/dL (9.8-20.1); Calc. Creatinine Clearance 98 mL/min (70-130); Calcium 8.9 mg/dL (7.8-10.44); Carbon Dioxide 27 mmol/L (22-29); Cardiac Risk 3.8 (Less than 4.5); Chloride 105 mmol/L (98-107); Cholesterol 158 mg/dl (< 200 Desired); Estimated GFR-MDRD 70; Glucose 114 mg/dL (70-105); HDL Cholesterol 42 mg/dL (>60 Neg Risk); LDL Cholesterol, Calculated 79 mg/dL; Potassium 4.3 mmol/L (3.5-5.1); Sodium 139 mmol/L (136-145); Triglycerides 184 mg/dL (Less than 150)
[2017-10-05 06:19] LABS: CKMB 14.4 ng/mL (0-6.6); Troponin I 4.248 ng/mL (< 0.028)
[2017-10-05 06:32] LABS: Band 5 % (5-11); Eosinophils 3 % (0-10); Hemoglobin 13.3 g/dL (12.0-16.0); Lymphocytes 57 % (21-51); MDiff Complete? YES; Mean Corpuscular HGB CONC 32.6 g/dL (32.0-36.0); Mean Platelet Volume 7.3 fL (7.4-10.4); Monocytes 9 % (0-10); Neutrophil 26 % (42-75); PLT Morphology Comment Appears Adequate; Platelet Count 232 thou/uL (130-400); RBC Distribution Width 14.1 % (11.5-14.5); Red Blood Cell (RBC) Count 4.75 mill/uL (4.20-5.40); White Blood Cell (WBC) Count 9.2 thou/uL (4.8-10.8)
[2017-10-05] MEDS ORDERED: Enoxaparin Sodium 40 MG/0.4 ML SYRINGE SC SCH (09:00)
[2017-10-05] MEDS: Losartan 25 MG TAB PO SCH (10:04)
[2017-10-05] MEDS: Loratadine 10 MG TAB PO SCH (10:04)
[2017-10-05] MEDS: Metoprolol Tartrate 100 MG TAB PO SCH ×2 (10:05→20:55)
[2017-10-05] MEDS: Famotidine 20 MG TAB PO SCH ×2 (10:05→20:55)
[2017-10-05] MEDS: Amlodipine 10 MG TAB PO SCH (10:05)
[2017-10-05] MEDS: Clopidogrel Bisulfate 75 MG TAB PO SCH (10:05)
[2017-10-05] MEDS: Acetaminophen 325 MG TAB PO PRN (10:06)
[2017-10-05] MEDS: Enoxaparin Sodium 100 MG/ML SYRINGE SC SCH (10:11)
--- NOTE | 2017-10-05 14:19 | PDOC.PN ---
- Subjective Encounter Start Date: 10/05/17 Encounter Start Time: 14:17 Subjective: feels much better.no more episodes of chest pain/tightness/SOB -: no overnight events - Objective MAR Reviewed: Yes Vital Signs & Weight: Vital Signs (12 hours) Temp Pulse Resp BP Pulse Ox 10/05/17 09:05 97.8 F 68 18 130/85 96 10/05/17 07:57 97.8 F 63 16 10/05/17 04:00 97.8 F 63 16 143/83 H 96 Weight Weight 221 lb 3.2 oz I&O: 10/04/17 10/05/17 10/06/17 06:59 06:59 06:59 Intake Total 1620 Output Total 1450 Balance 170 Result Diagrams: 10/05/17 05:27 10/05/17 05:27 Additional Labs: Laboratory Tests 10/04/17 10/04/17 10/04/17 01:17 04:07 07:10 Troponin I 0.022 0.168 H 1.543 H* Triglycerides 10/04/17 10/05/17 10/05/17 10:18 05:27 05:27 Troponin I 4.943 H* 4.248 H* Triglycerides 184 H labs reviewed Phys Exam - Physical Examination Constitutional: NAD HEENT: PERRLA, moist MMs, sclera anicteric, oral pharynx no lesions Neck: no nodes, no JVD, supple, full ROM Respiratory: no wheezing, no rales, no rhonchi, clear to auscultation bilateral Cardiovascular: RRR, no significant murmur, no rub Gastrointestinal: soft, non-tender, no distention, positive bowel sounds Musculoskeletal: no edema, pulses present Neurological: non-focal, normal sensation, moves all 4 limbs Psychiatric: normal affect, A&O x 3 Skin: no rash Dx/Plan (1) Chest pain Code(s): R07.9 - CHEST PAIN, UNSPECIFIED Status: Acute Qualifiers: Ischemic chest pain type: unstable angina pectoris (2) NSTEMI (non-ST elevated myocardial infarction) Code(s): I21.4 - NON-ST ELEVATION (NSTEMI) MYOCARDIAL INFARCTION Status: Acute (3) HLD (hyperlipidemia) Code(s): E78.5 - HYPERLIPIDEMIA, UNSPECIFIED Status: Acute (4) HTN (hypertension) Code(s): I10 - ESSENTIAL (PRIMARY) HYPERTENSION Status: Chronic Qualifiers: (5) Obesity (BMI 30-39.9) Code(s): E66.9 - OBESITY, UNSPECIFIED Status: Chronic - Plan DVT proph w/SCDs cont BID lovenox with plavix. cardiac cath tomorrow. -: hemodynamically stable for now.Monitro -: cont BB,LOLLY-I,Statin. allergic to ASA -: am labs.tele monitoring * . Review of Systems - Review of Systems Constitutional: negative: fever, chills, sweats, weakness, malaise, other Respiratory: negative: Cough, Dry, Shortness of Breath, Hemoptysis, SOB with Excertion, Pleuritic Pain, Sputum, Wheezing Cardiovascular: negative: chest pain, palpitations, orthopnea, paroxysmal nocturnal dyspnea, edema, light headedness, other Gastrointestinal: negative: Nausea, Vomiting, Abdominal Pain, Diarrhea, Constipation, Melena, Hematochezia, Other Genitourinary: negative: Dysuria, Frequency, Incontinence, Hematuria, Retention , Other Musculoskeletal: negative: Neck Pain, Shoulder Pain, Arm Pain, Back Pain, Hand Pain, Leg Pain, Foot Pain, Other Neurological: negative: Weakness, Numbness, Incoordination, Change in Speech, Confusion, Seizures, Other - Medications/Allergies Allergies/Adverse Reactions: Allergies Allergy/AdvReac Type Severity Reaction Status Date / Time aspirin Allergy Verified 05/02/16 15:17 Penicillins Allergy Verified 05/02/16 15:17 Medications: Current Medications Acetaminophen (Tylenol) 650 mg PO Q4H PRN PRN Reason: Headache/Fever or Pain Last Admin: 10/05/17 10:06 Dose: 650 mg Hydrocodone Bitart/Acetaminophen ([place]romwell 5/325) 1 tab PO Q4H PRN PRN Reason: Moderate Pain (4-6) Al Hydroxide/Mg Hydroxide (Maalox) 30 ml PO Q6H PRN PRN Reason: Heartburn or Indigestion Amlodipine Besylate (Norvasc) 10 mg PO DAILY [facility] Last Admin: 10/05/17 10:05 Dose: 10 mg Atorvastatin Calcium (Lipitor) 40 mg PO HS [facility] Last Admin: 10/04/17 21:08 Dose: 40 mg Benzonatate (Tessalon) 100 mg PO Q4H PRN PRN Reason: Cough Bisacodyl (Dulcolax) 10 mg PO DAILYPRN PRN PRN Reason: Constipation Calcium Carbonate (Tums) 1,000 mg PO Q4H PRN PRN Reason: Heartburn or Indigestion Clonidine (Catapres) 0.1 mg PO Q4H PRN PRN Reason: Systolic BP > 160 Clopidogrel Bisulfate (Plavix) 75 mg PO DAILY [facility] Last Admin: 10/05/17 10:05 Dose: 75 mg Famotidine (Pepcid) 20 mg PO BID [facility] Last Admin: 10/05/17 10:05 Dose: 20 mg Guaifenesin (Robitussin Sf) 200 mg PO Q4H PRN PRN Reason: Cough Hydralazine HCl (Apresoline) 10 mg SLOW IVP Q4H PRN PRN Reason: Systolic BP > 170 Loratadine (Claritin) 10 mg PO DAILY [facility] Last Admin: 10/05/17 10:04 Dose: 10 mg Lorazepam (Ativan) 1 mg PO Q4H PRN PRN Reason: Anxiety/Agitation Losartan Potassium (Cozaar) 50 mg PO DAILY [facility] Last Admin: 10/05/17 10:04 Dose: 50 mg Metoprolol Tartrate (Lopressor) 100 mg PO BID [facility] Last Admin: 10/05/17 10:05 Dose: 100 mg Nitroglycerin (Nitrostat) 0.4 mg SL Q5MIN PRN PRN Reason: Chest Pain Last Admin: 10/04/17 10:31 Dose: 0.4 mg Ondansetron HCl (Zofran) 4 mg IVP Q6H PRN PRN Reason: Nausea/Vomiting Senna (Senokot) 2 tab PO HSPRN PRN PRN Reason: Constipation Sodium Chloride (Flush - Normal Saline) 10 ml IVF Q12HR [facility] Last Admin: 10/05/17 10:05 Dose: 10 ml Sodium Chloride (Flush - Normal Saline) 10 ml IVF PRN PRN PRN Reason: Saline Flush Tramadol HCl (Ultram) 50 mg PO Q4H PRN PRN Reason: Moderate Pain (4-6)
[2017-10-05] MEDS ORDERED: Communication Order-Pharmacy FS SCH ×2 (17:30)
[2017-10-05] MEDS: Atorvastatin Calcium 40 MG TAB PO SCH (20:55)
[2017-10-06] MEDS ORDERED: Sodium Chloride 0.9% 1,000 ML IV SCH ×2 (06:00→13:15)
[2017-10-06] MEDS: Clopidogrel Bisulfate 75 MG TAB PO SCH (06:13)
[2017-10-06] MEDS: Amlodipine 10 MG TAB PO SCH (06:13)
[2017-10-06] MEDS: Loratadine 10 MG TAB PO SCH (06:13)
[2017-10-06] MEDS: Losartan 25 MG TAB PO SCH (06:13)
[2017-10-06] MEDS: Metoprolol Tartrate 100 MG TAB PO SCH ×2 (06:13→22:51)
[2017-10-06] MEDS: Famotidine 20 MG TAB PO SCH ×2 (06:13→20:12)
[2017-10-06] MEDS ORDERED: Lidocaine 1% (PF) 30 ML VIAL ONE (08:52)
[2017-10-06] MEDS ORDERED: Lidocaine 1% w/Epinephrine 1:100K 30 ML VIAL ONE (08:52)
[2017-10-06] MEDS ORDERED: Fentanyl 100 MCG/2 ML VIAL ONE (11:35)
[2017-10-06] MEDS ORDERED: Midazolam HCl 2 mg/2 ml Vial ONE (11:36)
[2017-10-06] MEDS ORDERED: hydrALAZINE 20 MG/ML VIAL ONE (11:46)
[2017-10-06] MEDS ORDERED: Heparin 10,000 UNITS/1 ML VIAL ONE (11:50)
[2017-10-06] MEDS ORDERED: TICAGRELOR 90 MG TABLET ONE (11:56)
--- NOTE | 2017-10-06 13:04 | PDOC.PN ---
- Subjective Encounter Start Date: 10/06/17 Encounter Start Time: 13:02 (late entry) Subjective: seen prior to cardiac Cath -: denies any new symptoms .no chest pain/SOB - Objective MAR Reviewed: Yes Vital Signs & Weight: Vital Signs (12 hours) Temp Pulse Resp BP Pulse Ox 10/06/17 08:16 98.1 F 65 16 152/79 H 98 10/06/17 06:13 70 10/06/17 04:00 98.1 F 70 20 122/61 96 Weight Weight 221 lb 3.2 oz I&O: 10/05/17 10/06/17 10/07/17 06:59 06:59 06:59 Intake Total 1620 1513 Output Total 1450 1380 Balance 170 133 Result Diagrams: 10/05/17 05:27 10/05/17 05:27 Additional Labs: labs reviewed Phys Exam - Physical Examination Constitutional: NAD HEENT: PERRLA, moist MMs, sclera anicteric, oral pharynx no lesions Neck: no nodes, no JVD, supple, full ROM Respiratory: no wheezing, no rales, no rhonchi, clear to auscultation bilateral Cardiovascular: RRR, no significant murmur, no rub Gastrointestinal: soft, non-tender, no distention, positive bowel sounds Musculoskeletal: no edema, pulses present Neurological: non-focal, normal sensation, moves all 4 limbs Psychiatric: normal affect, A&O x 3 Skin: no rash Dx/Plan (1) Chest pain Code(s): R07.9 - CHEST PAIN, UNSPECIFIED Status: Acute Qualifiers: Ischemic chest pain type: unstable angina pectoris (2) NSTEMI (non-ST elevated myocardial infarction) Code(s): I21.4 - NON-ST ELEVATION (NSTEMI) MYOCARDIAL INFARCTION Status: Acute (3) HLD (hyperlipidemia) Code(s): E78.5 - HYPERLIPIDEMIA, UNSPECIFIED Status: Acute (4) HTN (hypertension) Code(s): I10 - ESSENTIAL (PRIMARY) HYPERTENSION Status: Chronic Qualifiers: (5) Obesity (BMI 30-39.9) Code(s): E66.9 - OBESITY, UNSPECIFIED Status: Chronic - Plan out of bed/ambulate, DVT proph w/SCDs cardiac cath today.hemodynamically stable.follow recs -: cont cardio prudent meds as below. -: on statin,BB,ARB,Plavix.Allergic to ASA -: am labs * . Review of Systems - Review of Systems Constitutional: negative: fever, chills, sweats, weakness, malaise, other Eyes: negative: Pain, Vision Change, Conjunctivae Inflammation, Eyelid Inflammation, Redness, Other Respiratory: negative: Cough, Dry, Shortness of Breath, Hemoptysis, SOB with Excertion, Pleuritic Pain, Sputum, Wheezing Cardiovascular: negative: chest pain, palpitations, orthopnea, paroxysmal nocturnal dyspnea, edema, light headedness, other Gastrointestinal: negative: Nausea, Vomiting, Abdominal Pain, Diarrhea, Constipation, Melena, Hematochezia, Other Genitourinary: negative: Dysuria, Frequency, Incontinence, Hematuria, Retention , Other Musculoskeletal: negative: Neck Pain, Shoulder Pain, Arm Pain, Back Pain, Hand Pain, Leg Pain, Foot Pain, Other Skin: negative: Rash, Lesions, Leod[place], Bruising, Other - Medications/Allergies Allergies/Adverse Reactions: Allergies Allergy/AdvReac Type Severity Reaction Status Date / Time aspirin Allergy Verified 05/02/16 15:17 Penicillins Allergy Verified 05/02/16 15:17 Medications: Current Medications Acetaminophen (Tylenol) 650 mg PO Q4H PRN PRN Reason: Headache/Fever or Pain Last Admin: 10/05/17 10:06 Dose: 650 mg Hydrocodone Bitart/Acetaminophen (Alva 5/325) 1 tab PO Q4H PRN PRN Reason: Moderate Pain (4-6) Al Hydroxide/Mg Hydroxide (Maalox) 30 ml PO Q6H PRN PRN Reason: Heartburn or Indigestion Amlodipine Besylate (Norvasc) 10 mg PO DAILY [facility] Last Admin: 10/06/17 06:13 Dose: 10 mg Atorvastatin Calcium (Lipitor) 80 mg PO HS [facility] Last Admin: 10/05/17 20:55 Dose: 80 mg Benzonatate (Tessalon) 100 mg PO Q4H PRN PRN Reason: Cough Bisacodyl (Dulcolax) 10 mg PO DAILYPRN PRN PRN Reason: Constipation Calcium Carbonate (Tums) 1,000 mg PO Q4H PRN PRN Reason: Heartburn or Indigestion Clonidine (Catapres) 0.1 mg PO Q4H PRN PRN Reason: Systolic BP > 160 Clopidogrel Bisulfate (Plavix) 75 mg PO DAILY [facility] Last Admin: 10/06/17 06:13 Dose: 75 mg Famotidine (Pepcid) 20 mg PO BID [facility] Last Admin: 10/06/17 06:13 Dose: 20 mg Guaifenesin (Robitussin Sf) 200 mg PO Q4H PRN PRN Reason: Cough Hydralazine HCl (Apresoline) 10 mg SLOW IVP Q4H PRN PRN Reason: Systolic BP > 170 Sodium Chloride (Normal Saline 0.9%) 1,000 mls @ 100 mls/hr IV .Q10H [facility] Last Admin: 10/06/17 05:56 Dose: 1,000 mls Loratadine (Claritin) 10 mg PO DAILY [facility] Last Admin: 10/06/17 06:13 Dose: 10 mg Lorazepam (Ativan) 1 mg PO Q4H PRN PRN Reason: Anxiety/Agitation Losartan Potassium (Cozaar) 50 mg PO DAILY [facility] Last Admin: 10/06/17 06:13 Dose: 50 mg Metoprolol Tartrate (Lopressor) 100 mg PO BID [facility] Last Admin: 10/06/17 06:13 Dose: 100 mg Nitroglycerin (Nitrostat) 0.4 mg SL Q5MIN PRN PRN Reason: Chest Pain Last Admin: 10/04/17 10:31 Dose: 0.4 mg Ondansetron HCl (Zofran) 4 mg IVP Q6H PRN PRN Reason: Nausea/Vomiting Senna (Senokot) 2 tab PO HSPRN PRN PRN Reason: Constipation Sodium Chloride (Flush - Normal Saline) 10 ml IVF Q12HR [facility] Last Admin: 10/06/17 06:14 Dose: Not Given Sodium Chloride (Flush - Normal Saline) 10 ml IVF PRN PRN PRN Reason: Saline Flush Tramadol HCl (Ultram) 50 mg PO Q4H PRN PRN Reason: Moderate Pain (4-6)
[2017-10-06] MEDS ORDERED: Iopamidol 370 76% 50 ML VIAL FS ONE (13:30)
[2017-10-06] MEDS ORDERED: Iopamidol 370 76% 100 ML VIAL ONE (13:30)
[2017-10-06] MEDS ORDERED: Ondansetron ODT 4 MG TAB PO PRN (19:17)
[2017-10-06] MEDS ORDERED: Furosemide 40 MG/4 ML VIAL SLOW IVP SCH (19:45)
[2017-10-06] MEDS: TICAGRELOR 90 MG TABLET PO SCH (20:12)
[2017-10-06] MEDS: Atorvastatin Calcium 40 MG TAB PO SCH (20:12)
[2017-10-07 05:36] LABS: #Eosinphils 0.1 thou/uL (0.0-0.7); #Lymphocytes 2.8 thou/uL (1.20-3.40); #Monocytes 1.2 thou/uL (0.11-0.59); #Neutrophils 6.7 thou/uL (1.40-6.50); %Basophils 0.3 % (0.0-1.0); %Eosinophils 0.6 % (0.0-10.0); %Lymphocytes 25.9 % (21.0-51.0); %Monocytes 10.8 % (0.0-10.0); %Neutrophils 62.4 % (42.0-75.0); Hemoglobin 14.8 g/dL (12.0-16.0); Mean Corpuscular HGB CONC 32.1 g/dL (32.0-36.0); Mean Corpuscular Hemoglobin 27.5 pg (27.0-31.0); Mean Corpuscular Volume 85.7 fL (78.0-98.0); Mean Platelet Volume 7.1 fL (7.4-10.4); Platelet Count 238 thou/uL (130-400); RBC Distribution Width 14.4 % (11.5-14.5); Red Blood Cell (RBC) Count 5.37 mill/uL (4.20-5.40); White Blood Cell (WBC) Count 10.8 thou/uL (4.8-10.8)
[2017-10-07 05:41] LABS: Hemoglobin 14.9 g/dL (12.0-16.0)
[2017-10-07 05:49] LABS: ALT (SGPT) 34 U/L (8-55); AST (SGOT) 44 U/L (5-34); Albumin 3.9 g/dL (3.5-5.0); Alkaline Phosphatase 123 U/L (40-150); Anion Gap 15 mmol/L (10-20); BUN (Urea Nitrogen) 18 mg/dL (9.8-20.1); Bilirubin, Total 0.6 mg/dL (0.2-1.2); Calc. Creatinine Clearance 87 mL/min (70-130); Calcium 9.6 mg/dL (7.8-10.44); Carbon Dioxide 24 mmol/L (22-29); Chloride 103 mmol/L (98-107); Estimated GFR-MDRD 60; Globulin 3.9 g/dL (2.4-3.5); Glucose 120 mg/dL (70-105); Potassium 3.4 mmol/L (3.5-5.1); Protein, Total 7.8 g/dL (6.0-8.3); Sodium 139 mmol/L (136-145)
[2017-10-07] MEDS: Metoprolol Tartrate 100 MG TAB PO SCH (08:44)
[2017-10-07] MEDS: Famotidine 20 MG TAB PO SCH (08:44)
[2017-10-07] MEDS: Loratadine 10 MG TAB PO SCH (08:44)
[2017-10-07] MEDS: TICAGRELOR 90 MG TABLET PO SCH (08:44)
[2017-10-07] MEDS: Amlodipine 10 MG TAB PO SCH (08:44)
[2017-10-07] MEDS: Losartan 25 MG TAB PO SCH (08:44)
[2017-10-07 12:57] VITALS: BP 141/86; TEMP 97.6
--- NOTE | 2017-10-07 13:45 | DIS ---
PRIMARY CARE PHYSICIAN: Daphnie ____, Nurse Practitioner. INHOUSE CONSULTATIONS: Cardiology, Dr. Echeverria, and Dr. Walter. PROCEDURES DONE IN THE HOSPITAL: 1. Transthoracic echocardiogram, which shows moderate pericardial effusion, akinesis of the apical w all. Ejection fraction 55-60%, diastolic dysfunction. 2. Cardiac catheterization on 10/06/2017 which shows normal left ventricular systolic function, apic al akinesis, stable RCA and left circumflex disease. Patent LAD stents. Ostial D1 stent with 70% in -stent thrombosis. Status post successful balloon angioplasty to the ostial D1 with a 2.5 x 12 mm NC balloon at 12 atmospheres of pressure. DISCHARGE DIAGNOSES: 1. Non-ST elevation myocardial infarction. 2. Unstable angina due to in-stent thrombosis. 3. Hypertension. 4. Dyslipidemia. 5. Obesity. DISCHARGE MEDICATIONS: Metoprolol tartrate 100 mg p.o. b.i.d., cetirizine 10 mg daily, amlodipine 10 mg daily, Cozaar 50 mg daily, Lipitor dose was increased to 80 mg daily, Plavix was discontinued and she was started on Brilinta 90 mg p.o. b.i.d. Prescriptions were provided. HOSPITAL COURSE: Ms. Peralta is a very pleasant 57-year-old female who came to the hospital with co mplaints of chest pain. She was recently discharged on 08/07/2017 after undergoing a successful esteban tment for ST elevation DE with PCI with drug-eluting stent in the LAD x2. She came in with worsening sharp, crushing chest pain similar to her DE pain about a few weeks ago. At this time, her EKG did not have any ST elevation changes to suggest ACS. Her initial cardiac enzyme was normal. Her blood pressure was elevated to 193/128. She was started on therapeutic dose of Lovenox given the history o f typical chest pain. She was admitted for further evaluation. Please see admission history and phy sical for further details. HOSPITAL COURSE: The patient's troponin continue to trend upwards. She was 0.168 and then 1.503. C ardiology was consulted and she underwent cardiac catheterization and echocardiogram with the above-m entioned results. She was noted to have in-stent thrombosis, which was treated with balloon angiopla sty. Her Plavix was discontinued and she was started on Brilinta by Dr. Walter. She tolerated this very well. She was seen and examined 1 day after the cardiac catheterization and on the day of discharge. She i s in good spirits and has no new complaints. PHYSICAL EXAMINATION: VITAL SIGNS: This morning temperature is 97.6, pulse of 69, respirations 40, saturating 98% on room air, blood pressure 141/86. GENERAL: No acute distress, awake, alert, oriented x3. CHEST: Clear to auscultation without any wheezing, rales or rhonchi. CARDIOVASCULAR: Rhythm is regular. She is symptom free. She has been cleared by Cardiology for discharge today. Discharge plan was discussed with the geno marvin who verbalized understanding. Outpatient cardiac rehab is being arranged for her. Prescriptions w ere provided. Total time spent in the discharge of this patient 32 minutes.
--- NOTE | 2017-10-07 19:24 | PDOC.CTH ---
Cardiology Progress Note - Subjective She is doing well this morning. She denies any chest pain, tightness, pressure, SOB. Her right groin is without issues. - Objective Vital Signs Temp Pulse Pulse Pulse Resp BP BP 10/07/17 11:50 97.6 F 69 14 10/07/17 11:40 62 66 135/83 156/78 H 10/07/17 08:44 69 10/07/17 08:40 97.9 F 73 18 BP Pulse Ox Pulse Ox Pulse Ox 10/07/17 11:50 141/86 H 98 10/07/17 11:40 99 98 10/07/17 08:44 10/07/17 08:40 132/85 98 Weight 218 lb 8 oz 10/06/17 10/07/17 10/08/17 06:59 06:59 06:59 Intake Total 1513 2745 Output Total 1380 3500 Balance 133 -755 - Physical Examination General/Neuro: alert & oriented x3, NAD Neck: no JVD present Lungs: CTA, unlabored respirations Heart: RRR Abdomen: NT/ND Extremities: other: (No edema) - Telemetry Telemetry Rhythm: NSR - Labs Result Diagrams: 10/07/17 05:07 10/07/17 05:07 Troponin/CKMB CK-MB (CK-2) 14.4 ng/mL (0-6.6) H* 10/05/17 05:27 Troponin I 4.248 ng/mL (< 0.028) H* 10/05/17 05:27 - Assessment/Plan 1. NSTEMI 2. S/P POBA to D1 3. ASA allergy PLAN: - Switch Plavix to Brilinta. - August d/c home - Follow up in 1 month.
== END 2017-10-07 14:25 | disposition home or self-care (01) | DRG 250 ==
LOC: ERS 01:11 → 2NO 04:18
PROVIDERS: ADMIT Internal Medicine; ATTEND Internal Medicine
PROC: 02703ZZ Dilation of Coronary Artery, One Artery, Percutaneous Approach (ICD-10-PCS; principal; 2017-10-06)
PROC: 4A023N7 Measurement of Cardiac Sampling and Pressure, Left Heart, Percutaneous Approach (ICD-10-PCS; 2017-10-06)
PROC: B2111ZZ Fluoroscopy of Multiple Coronary Arteries using Low Osmolar Contrast (ICD-10-PCS; 2017-10-06)
DX: T82.867A Thrombosis due to cardiac prosthetic devices, implants and grafts, initial encounter (principal); I21.4 Non-ST elevation (NSTEMI) myocardial infarction; I31.3 Pericardial effusion (noninflammatory); I10 Essential (primary) hypertension; E78.5 Hyperlipidemia, unspecified; I25.10 Atherosclerotic heart disease of native coronary artery without angina pectoris; E66.01 Morbid (severe) obesity due to excess calories; I16.0 Hypertensive urgency; Z95.5 Presence of coronary angioplasty implant and graft; I25.2 Old myocardial infarction; Z90.710 Acquired absence of both cervix and uterus; Z88.6 Allergy status to analgesic agent; Z88.0 Allergy status to penicillin; Z79.02 Long term (current) use of antithrombotics/antiplatelets; Y83.1 Surgical operation with implant of artificial internal device as the cause of abnormal reaction of the patient, or of later complication, without mention of misadventure at the time of the procedure
CPT/HCPCS: 36415; 71045; 80048; 80053; 80061; 82550; 82553; 84484; 85014; 85018; 85025; 85347; 92920; 93005; 93010; 93306; 93458; 93798; 96365; 96372; 96375; 99152; 99153; A4216; C1769; J0360; J1644; J1650; J1940; J2001; J2250; J2550; J3010; Q0162